=== PATIENT | male | born 1955 | race Hispanic/Latino ===

== ENCOUNTER 2018-12-28 10:01 | Outpatient (CLI) | payer OTHER ==
--- NOTE | 2018-12-28 10:50 | XRay Report ---
ROUTINE CHEST, TWO VIEWS: HISTORY: Malignant neoplasm of prostate. The trachea, heart, mediastinal contour, lung ruiz and bony thorax are unremarkable. No suspicious bony lesions are identified on x-ray. IMPRESSION: Unremarkable chest x-ray.
--- NOTE | 2018-12-29 09:22 | Nuclear Medicine Report ---
NUCLEAR MEDICINE WHOLE-BODY BONE SCAN: 12/28/18 10:15:00 CLINICAL: Prostate cancer. COMPARISON: None. TECHNIQUE: 25 millicuries technetium 99m MDP was injected intravenously and whole body scans were obtained at 3 hours. FINDINGS: Suspicious uptake at the L1 vertebral body level and in the upper sternum. No other suspicious findings. Probably benign uptake in the distal left clavicle. Normal distribution of radionuclide in the soft tissues. IMPRESSION: Suspicious uptake at L1 and in the upper sternum. Recommend correlation with CT or MRI.
== END 2018-12-28 10:02 | disposition home or self-care (01) ==
LOC: NM 10:01
PROVIDERS: ATTEND Urology
DX: C61 Malignant neoplasm of prostate (principal); E78.00 Pure hypercholesterolemia, unspecified; I10 Essential (primary) hypertension; K21.9 Gastro-esophageal reflux disease without esophagitis; Z90.89 Acquired absence of other organs
CPT/HCPCS: 71046; 78306; A9503

== ENCOUNTER 2019-01-04 05:59 | Outpatient (CLI) | payer OTHER ==
[2019-01-04 06:28] LABS: Blood Urea Nitrogen 25 mg/dL (9-20)
--- NOTE | 2019-01-04 09:39 | Cat Scan Report ---
CT scan of chest with IV contrast: History: C6-T1 malignant neoplasm of prostate. Findings: There is 2.6 cm cyst identified in the left thyroid gland. No mediastinal mass or adenopathy. Suspected small sliding hiatal hernia. No pleural or pericardial effusion. The no discrete nodularity or consolidation of the lung parenchyma. Left basilar scarring. Impression: Cyst left lobe of thyroid gland. Suspected small sliding hiatal hernia. The
--- NOTE | 2019-01-04 09:47 | Cat Scan Report ---
CT scan of abdomen and pelvis with IV contrast: History: Malignant neoplasm of prostate. Findings: Normal liver spleen pancreas and gallbladder. Normal adrenals. There is 3 adjacent cysts identified in the upper pole of right kidney with calcification/clip. The largest measures approximate 2 cm. There is a single cyst identified in the upper pole of left kidney with calcification/clip measuring approximate 2 cm. There is a second cyst identified measuring 1.25 cm. There is a hypodensity noted at the hilum of the left kidney lower pole probably dilated calyx or a cyst. No calculi identified along the course of the ureter. The bladder appears unremarkable. Normal prostate and seminal vesicles. No free intraperitoneal fluid or air. No evidence of adenopathy. Gaseous colon with moderate amount of stool in colon. Impression: Changes in the right and left kidney noted as described. No evidence of adenopathy.
== END 2019-01-04 06:00 | disposition home or self-care (01) ==
LOC: CT 05:59
PROVIDERS: ATTEND Urology
DX: N28.1 Cyst of kidney, acquired (principal); E04.1 Nontoxic single thyroid nodule; C61 Malignant neoplasm of prostate
CPT/HCPCS: 36415; 71260; 74177; 82565; 84520; Q9967

== ENCOUNTER 2019-06-05 11:04 | Day surgery (SDC) | payer OTHER ==
[2019-06-05 14:31] VITALS: BP 111/65
--- NOTE | 2019-06-05 14:35 | Short Stay Summary ---
Short Stay Documentation Date of service: 06/05/19 - History Principal diagnosis: thyroid nodule Past Medical History: cancer (prostate) - Allergies and Medications Current Medications: Allergies No Known Allergies Allergy (Verified 10/07/14 06:18) Home Medications Medication Instructions Recorded Confirmed Last Taken Type Losartan Potassium 50 mg PO BID 10/07/14 03/21/15 03/21/15 History 50 mg Verapamil HCl 240 mg PO QAM 10/07/14 03/21/15 03/21/15 History 120 mg cloNIDine [Catapres] 0.2 mg PO BID 10/07/14 03/21/15 03/21/15 History hydroCHLOROthiazide 25 mg PO QAM 10/07/14 03/21/15 03/20/15 History [Hydrochlorothiazide] 25 mg HYDROcodone/APAP 10-325 [[place] 1 each PO PRN PRN 01/10/15 03/21/15 03/14/15 History 10-325 mg TAB] oxyCODONE /ACETAMINOPHEN [Percocet 1 - 2 tab PO Q6HR PRN #30 tablet 03/21/15 Unknown Rx 5/325 mg] - Physical exam General appearance: no acute distress HEENT: Atraumatic, PERRLA, EOMI, Mucous membr. moist/pink - Brief post op/procedure progress note Date of procedure: 06/05/19 Pre-op diagnosis: left thyroid nodule Post-op diagnosis: same Procedure: US left thyroid FNA Anesthesia: local Findings: slightly complex b/l thyroid nodules. dominant nodule in the left lobe sampled. Surgeon: LIANE POST Estimated blood loss: none Pathology: list (FNA x 5) Specimen disposition: to lab Condition: stable - Hospital course Hospital course: uneventful - Disposition Condition at discharge: Good Disposition: [id number]-01 TO HOME OR SELFCARE Short Stay Discharge Plan Follow up with: ULI LANZA MD [Primary Care Provider] - 7 Days
--- NOTE | 2019-06-05 14:45 | Ultrasound Report ---
ULTRASOUND FNA THYROID HISTORY: Left thyroid mass DESCRIPTION OF PROCEDURE: Informed consent was obtained. Sterile technique was utilized. 1% lidocaine for skin anesthesia. Initial scan of the thyroid demonstrated bilateral slightly complex thyroid nodules. The nodules were predominantly solid with small cystic areas and well-defined borders. The dominant nodule in the mid left thyroid lobe measuring 2.2 x 1.4 x 1.4 was selected for fine-needle aspiration. Using ultrasound guidance, 5 fine-needle aspirations were obtained from the left thyroid nodule. The first FNA aspirated the liquid component of the nodule which was placed in satellite media. The subse quent 4 FNAs were of the solid component of the nodule. Samples were placed on a microscope slide as well as satellite media. The samples were deemed borderline by the pathologist. No complications. IMPRESSION: Technically successful ultrasound-guided fine-needle aspiration of the dominant nodule in the mid left thyroid lobe. Signer Name: Kiko Andres Jr, MD Signed: 06/05/2019 2:41 PM Workstation Name: [id number]
== END 2019-06-05 11:05 | disposition home or self-care (01) ==
LOC: CATHLABREC 11:04 → EDSTATUS 12:00
PROVIDERS: ATTEND Otolaryngology
DX: E04.1 Nontoxic single thyroid nodule (principal); E78.00 Pure hypercholesterolemia, unspecified; I10 Essential (primary) hypertension; M19.90 Unspecified osteoarthritis, unspecified site; Z79.899 Other long term (current) drug therapy; Z98.890 Other specified postprocedural states
CPT/HCPCS: 10005; 88112; 88172; 88173; 88177; 88305